=== PATIENT | female | born 1950 | race Caucasian/White ===

== ENCOUNTER 2017-01-03 11:01 | Inpatient (IN) | payer MEDICARE, SELFPAY ==
[~2017-01-03] VITALS: Ht 160 cm; Wt 48.7 kg
[~2017-01-03 11:01] MED LIST: ATROVENT INH S2.5 ML INH; BUSPIRONE HCL10 MG PO; ENSURE PLUS237 ML PO; HYDROCODON-ACE1 EAC2 PO; IMITREX50 MG PO; K-DUR TAB 10 M10 MEQ PO; KLONOPIN TAB 00.5 MG PO; LEVOTHYROXINE25 MCG PO; PERFOROMIS20 MCG/21 HHN; PREDNISONE 10 M10 MG PO; PULMICORT0.5 MG/21 INH; RANITIDINE HCL300 MG PO; ROPINIROLE HCL0.5 MG PO; SPIRIVA RESPIMAT4 GM INH; THERAGRAN M TAB1 EA PO; TIZANIDINE HCL4 M1 PO; TOPROL XL 25 MG25 MG PO; TRAMADOL HCL50 MG PO; TYLENOL 325MG325 MG PO; VENTOLIN/PROVE0.5 ML INH
[2017-01-03 11:47] LABS: HEMOGLOBIN 13.2 gm/dl (12.3-15.3); RED BLOOD COUNT 4.69 M/UL (4.00-5.10); WHITE BLOOD COUNT 17.1 K/UL (4.5-11.0)
[2017-01-03 12:12] LABS: BUN/CREATININE RATIO 19 (0-10)
[2017-01-03] MEDS ORDERED: LEVOTHYROXINE75 MCG PO (20:15)
[2017-01-03] MEDS ORDERED: VIBRAMYCIN 100100 MG PO (20:16)
[2017-01-03] MEDS ORDERED: TIZANIDINE HCL4 M1 PO (20:17)
[2017-01-03] MEDS ORDERED: TYLENOL WITH C1 EACH PO (20:17)
[2017-01-03] MEDS ORDERED: KLONOPIN TAB 00.5 MG PO (20:18)
[2017-01-03] MEDS ORDERED: ZANAFLEX 4 MG TA4 MG PO (20:18)
[2017-01-03] MEDS ORDERED: MONTELUKAST SOD10 MG PO (20:19)
[2017-01-03] MEDS ORDERED: PREDNISONE5 MG PO (20:19)
[2017-01-03] MEDS ORDERED: FLUOXETINE HCL40 MG PO (20:20)
[2017-01-03] MEDS ORDERED: ASPIR 8181 MG PO (20:21)
[2017-01-05 06:32] LABS: BUN/CREATININE RATIO 28 (0-10)
[2017-01-06 04:17] LABS: HEMOGLOBIN 10.5 gm/dl (12.3-15.3); RED BLOOD COUNT 3.79 M/UL (4.00-5.10); WHITE BLOOD COUNT 19.9 K/UL (4.5-11.0)
[2017-01-06 04:47] LABS: BUN/CREATININE RATIO 26 (0-10)
[2017-01-07 06:04] LABS: HEMOGLOBIN 10.4 gm/dl (12.3-15.3); RED BLOOD COUNT 3.76 M/UL (4.00-5.10); WHITE BLOOD COUNT 15.1 K/UL (4.5-11.0)
[2017-01-07 06:20] LABS: BUN/CREATININE RATIO 23 (0-10)
[2017-01-08 06:29] LABS: BUN/CREATININE RATIO 28 (0-10)
[2017-01-11 04:56] LABS: RED BLOOD COUNT 4.06 M/UL (4.00-5.10); WHITE BLOOD COUNT 16.3 K/UL (4.5-11.0)
[2017-01-11 05:11] LABS: BUN/CREATININE RATIO 39 (0-10)
[2017-01-11] MEDS ORDERED: TESSALON PERLE100 MG PO (16:16)
[2017-01-11] MEDS ORDERED: SENOKOT-S TABL1 EACH PO (16:17)
[2017-01-11] MEDS ORDERED: DULERA 100 MCG8.8 GM INH (16:17)
[2017-01-11] MEDS ORDERED: ENSURE LIQUID237 ML PO (16:18)
[2017-01-11] MEDS ORDERED: LEVAQUIN500 MG PO (16:19)
[2017-01-11] MEDS ORDERED: DIFLUCAN100 MG PO (16:19)
[2017-01-11] MEDS ORDERED: FLAGYL500 MG PO (16:20)
[2017-01-11] MEDS ORDERED: PREDNISONE 10 M10 MG PO (16:21)
== END 2017-01-11 19:50 | DRG 189 ==
LOC: ER1 11:01 → ZEROF 16:46 → M/S 16:46 → ZEROF 16:46 → M/S 19:42
PROVIDERS: Emergency Medicine; Internal Medicine Infectious Disease; ADMIT Family Medicine
PROC: 5A09357 Assistance with Respiratory Ventilation, Less than 24 Consecutive Hours, Continuous Positive Airway Pressure (ICD-10-PCS; principal; 2017-01-05)
DX: J96.22 Acute and chronic respiratory failure with hypercapnia (principal); J18.9 Pneumonia, unspecified organism; E43 Unspecified severe protein-calorie malnutrition; J44.0 Chronic obstructive pulmonary disease with (acute) lower respiratory infection; J44.1 Chronic obstructive pulmonary disease with (acute) exacerbation; J98.11 Atelectasis; Z68.1 Body mass index [BMI] 19.9 or less, adult; J96.21 Acute and chronic respiratory failure with hypoxia; E11.9 Type 2 diabetes mellitus without complications; E03.9 Hypothyroidism, unspecified; E87.6 Hypokalemia; D64.9 Anemia, unspecified; E53.8 Deficiency of other specified B group vitamins; R51 Headache; F32.9 Major depressive disorder, single episode, unspecified; F41.9 Anxiety disorder, unspecified; Z87.891 Personal history of nicotine dependence; Z99.81 Dependence on supplemental oxygen; Z79.52 Long term (current) use of systemic steroids; Z79.891 Long term (current) use of opiate analgesic; Z79.82 Long term (current) use of aspirin; Z79.1 Long term (current) use of non-steroidal anti-inflammatories (NSAID); Z79.899 Other long term (current) drug therapy
CPT/HCPCS: 36415; 36600; 71010; 71020; 80048; 80053; 80202; 82330; 82550; 82553; 82803; 83605; 83735; 83874; 84100; 84484; 85025; 85027; 87040; 87081; 93005; 94640; 94660; 94664; 96374; 96375; 99285; J0456; J0696; J1644; J2543; J2920; J3370; J7030; J7050; J7070; J7509; Q9962; Q9963

== ENCOUNTER 2021-02-02 09:50 | Emergency (ER) | payer MEDICARE ==
[~2021-02-02 09:50] MED LIST changes: +ASPIR 8181 MG PO; +DIFLUCAN100 MG PO; +DULERA 100 MCG8.8 GM INH; +ENSURE LIQUID237 ML PO; +ERYTHROMYCIN O3.5 GM EYERT; +FLAGYL500 MG PO; +FLEXERIL 10 MG10 MG PO; +FLUOXETINE HCL40 MG PO; +LEVAQUIN500 MG PO; +LEVOTHYROXINE75 MCG PO; +LODINE CAP 300300 MG PO; +MONTELUKAST SOD10 MG PO; +OMNICEF 300 MG300 MG PO; +PREDNISONE10 MG PO; +PREDNISONE20 MG PO; +PREDNISONE5 MG PO; +SENOKOT-S TABL1 EACH PO; +TESSALON PERLE100 MG PO; +TYLENOL WITH C1 EACH PO; +VIBRAMYCIN 100100 MG PO; +ZANAFLEX 4 MG TA4 MG PO; +ZOFRAN ODT 4 MG4 MG PO
[2021-02-02 10:56] LABS: HEMOGLOBIN 13.3 gm/dl (12.3-15.3); RED BLOOD COUNT 4.61 M/UL (4.00-5.10); WHITE BLOOD COUNT 11.2 K/UL (4.5-11.0)
[2021-02-02 11:57] LABS: BUN/CREATININE RATIO 23 (0-10)
== END 2021-02-02 13:00 | disposition home or self-care (01) ==
LOC: ER1 09:50
PROVIDERS: Physician Assistant
DX: S09.90XA Unspecified injury of head, initial encounter (principal); S16.1XXA Strain of muscle, fascia and tendon at neck level, initial encounter; S39.012A Strain of muscle, fascia and tendon of lower back, initial encounter; S29.012A Strain of muscle and tendon of back wall of thorax, initial encounter; I50.9 Heart failure, unspecified; J44.9 Chronic obstructive pulmonary disease, unspecified; N18.9 Chronic kidney disease, unspecified; Z87.891 Personal history of nicotine dependence; W22.8XXA Striking against or struck by other objects, initial encounter; Y92.009 Unspecified place in unspecified non-institutional (private) residence as the place of occurrence of the external cause
CPT/HCPCS: 70450; 72125; 72128; 72131; 80053; 82550; 82553; 83874; 84484; 85025; 93005; 99284